=== PATIENT | male | born 1980 | race Two or more races ===

== ENCOUNTER 2016-12-03 14:26 | Emergency (ER) | payer MEDICAID ==
[2016-12-03 14:51] VITALS: BP 145/113
[2016-12-03] MEDS ORDERED: Cyclobenzaprine 10 MG Tab PO ONE (15:13)
[2016-12-03] MEDS ORDERED: Ketorolac 60 MG/2 ML SDV IM ONE (15:13)
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
--- NOTE | 2016-12-06 11:15 | CR ---
Shoulder Comp Rt HISTORY: Trauma COMPARISON: None FINDINGS: There is normal alignment of the glenohumeral as well as AC joints. No fractures are demon strated. There are hypertrophic degenerative findings at the AC joint. The soft tissues are unremark able. IMPRESSION: 1. No acute findings.
== END 2016-12-03 16:49 | disposition home or self-care (01) ==
LOC: JP.ED 14:26
DX: S43.401A Unspecified sprain of right shoulder joint, initial encounter (principal); F17.210 Nicotine dependence, cigarettes, uncomplicated; Z88.8 Allergy status to other drugs, medicaments and biological substances
CPT/HCPCS: 73030; 96372; 99283; A9270; J1885

== ENCOUNTER 2017-02-14 14:54 | Emergency (ER) | payer MEDICAID ==
[2017-02-14 15:10] VITALS: BP 127/111
[2017-02-14] MEDS ORDERED: Ketorolac 60 MG/2 ML SDV IM ONE (15:25)
--- NOTE | 2017-02-14 15:31 | EDM.PDOC ---
ED HPI GENERAL MEDICAL PROBLEM - General Chief Complaint: ENT Problem Stated Complaint: RIGHT SIDE TOOTH PAIN Time Seen by Provider: 02/14/17 15:20 Source of Information: Reports: Patient History Limitations: Reports: No Limitations - History of Present Illness INITIAL COMMENTS - FREE TEXT/NARRATIVE: 36 yr old male with 1 day hx of dental pain, right lower teeth. States he attempted to get into [facility] but they didn't have available appt today. No fever has been noted. States he missed work and also needs a work note. No hx of similar infection in past. 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 Onset: Sudden Duration: Day(s): Quality: Reports: Sharp Severity: Moderate Improves with: Reports: None Worsens with: Reports: None Associated Symptoms: Reports: No Other Symptoms - Related Data Allergies Allergy/AdvReac Type Severity Reaction Status Date / Time meperidine [From Demerol] Allergy Hives Verified 12/03/16 15:00 Home Meds: Home Meds NK [No Known Home Meds] 02/14/17 [History] Past Medical History - Past Health History Medical/Surgical History: Denies Medical/Surgical History Cardiovascular History: Reports: Hypertension Musculoskeletal History: Reports: Fracture Psychiatric History: Reports: PTSD Dermatologic History: Reports: Psoriasis Social & Family History - Tobacco Use Smoking Status *Q: Current Some Day Smoker Years of Tobacco use: 20 Packs/Tins Daily: 1 Used Tobacco, but Quit: No - Caffeine Use Caffeine Use: Reports: Coffee - Recreational Drug Use Recreational Drug Use: No ED ROS ENT - Review of Systems Review Of Systems: ROS reveals no pertinent complaints other than HPI. ED EXAM, ENT - Physical Exam Exam: See Below Exam Limited By: No Limitations General Appearance: Alert, No Apparent Distress Eye Exam: Bilateral Eye: Normal Inspection, PERRL Ears: Normal External Exam, Normal Canal, Normal TMs Nose: Normal Inspection, Normal Mucousa Mouth/Throat: Normal Lips, Normal Oropharynx, Dental Abcess (Tooth #31 and 32) Head: Atraumatic, Normocephalic Neck: Normal Inspection, Supple, Full Range of Motion. No: Non-Tender, Lymphadenopathy (R) (but reports tender on exam), Lymphadenopathy (L) Respiratory/Chest: No Respiratory Distress, Lungs Clear, Normal Breath Sounds Cardiovascular: Regular Rate, Rhythm Skin: Warm, Dry, Intact, Normal Color, No Rash (no facial swelling noted) Course - Vital Signs Last Recorded V/S: Last Vital Signs Temp 36.6 C 02/14/17 15:19 Pulse 94 02/14/17 15:19 Resp 16 02/14/17 15:19 BP 127/111 H 02/14/17 15:19 Pulse Ox 95 02/14/17 15:19 - Orders/Labs/Meds Meds: Medications Discontinued Medications Generic Name Dose Route Start Last Admin Trade Name Miranda PRN Reason Stop Dose Admin Ketorolac Tromethamine 60 mg 02/14/17 15:25 02/14/17 15:31 Toradol IM 02/14/17 15:26 60 mg ONETIME ONE Administration Departure - Departure Time of Disposition: 15:29 Disposition: Home, Self-Care 01 Condition: good Clinical Impression: Dental abscess, Elevated blood pressure reading, Tooth ache - Discharge Information Instructions: Dental Abscess Referrals: PCP,None [Primary Care Provider] - Forms: ED Department Discharge Additional Instructions: 1. See your dentist regarding your dental pain. 2. You received Clindamcyin-an antibiotics for your dental infection and acetaminophen with codeine and ibuprofen for your acute pain. 3. Your blood pressure was elevated today and will need to be rechecked within the next week. - Problem List & Annotations (1) Dental abscess SNOMED Code(s): 905601142 Code(s): K04.7 - PERIAPICAL ABSCESS WITHOUT SINUS Status: Acute Priority : Medium Current Visit: Yes (2) Elevated blood pressure reading SNOMED Code(s): 39693383 Code(s): R03.0 - ELEVATED BLOOD-PRESSURE READING, W/O DIAGNOSIS OF HTN Status: Acute Priority: Medium Current Visit: Yes (3) Tooth ache SNOMED Code(s): 77300747 Code(s): K08.89 - OTHER SPECIFIED DISORDERS OF TEETH AND SUPPORTING STRUCTURES Status: Acute Priority: Medium Current Visit: Yes - Problem List Review Problem List Initiated/Reviewed/Updated: Yes
== END 2017-02-14 15:43 | disposition home or self-care (01) ==
LOC: JP.ED 14:54
DX: K04.7 Periapical abscess without sinus (principal); R03.0 Elevated blood-pressure reading, without diagnosis of hypertension; K08.89 Other specified disorders of teeth and supporting structures; F17.210 Nicotine dependence, cigarettes, uncomplicated; Z88.8 Allergy status to other drugs, medicaments and biological substances
CPT/HCPCS: 96372; 99283; J1885

== ENCOUNTER 2017-03-13 16:04 | Emergency (ER) | payer MEDICAID ==
--- NOTE | 2017-03-13 18:30 | EDM.PDOC ---
[id number] Complaint: L LEG PAIN Time Seen by Provider: 03/13/17 16:40 Source of Information: Reports: Patient History Limitations: Reports: No Limitations - History of Present Illness INITIAL COMMENTS - FREE TEXT/NARRATIVE: pt arrived with a markedly swollen left leg. He had an abrasion on the inner aspect of the leg. Onset: Gradual Duration: Day(s): Location: Reports: Lower Extremity, Left Severity: Severe Associated Symptoms: Reports: Other (pt has marked tenderness by the left ankle on the inner aspect. He has not had a sprain. He did have the abrasion. ) Left Leg Pain Score (Numeric/FACES): 7 - Related Data Allergies Allergy/AdvReac Type Severity Reaction Status Date / Time meperidine [From Demerol] Allergy Hives Verified 03/13/17 17:10 Home Meds: Home Meds Acetaminophen with Codeine [Tylenol with Codeine #3 Tablet] 1 tab PO Q4H PRN 08/19 [History] Past Medical History - Past Health History Medical/Surgical History: Denies Medical/Surgical History Cardiovascular History: Reports: Hypertension Musculoskeletal History: Reports: Fracture Psychiatric History: Reports: PTSD Dermatologic History: Reports: Psoriasis Social & Family History - Tobacco Use Smoking Status *Q: Light Tobacco Smoker Years of Tobacco use: 23 Packs/Tins Daily: 0.3 Used Tobacco, but Quit: No - Caffeine Use Caffeine Use: Reports: Coffee - Recreational Drug Use Recreational Drug Use: Yes Recreational Drug Type: Reports: Marijuana/Hashish Recreational Drug Use Frequency: Rarely Review of Systems - Review of Systems Review Of Systems: See Below Eyes: Reports: No Symptoms Ears: Reports: No Symptoms Nose: Reports: No Symptoms Mouth/Throat: Reports: No Symptoms Respiratory: Reports: No Symptoms Cardiovascular: Reports: No Symptoms GI/Abdominal: Reports: No Symptoms Genitourinary: Reports: No Symptoms Musculoskeletal: Reports: Other (pt has a markedly swollen left leg which is very tight and particularly tender on the inner aspect of the left ankle. There is a slight red rash in this area. ) Skin: Reports: No Symptoms Neurological: Reports: No Symptoms Psychiatric: Reports: No Symptoms ED EXAM, GENERAL - Physical Exam Exam: See Below Free Text/Narrative:: pt has a markedly swollen left leg with the only injury is an abrasion on the inner aspect mid calf. Exam Limited By: No Limitations General Appearance: Alert, Anxious Ears: Normal TMs Nose: Normal Inspection Throat/Mouth: Normal Inspection Head: Atraumatic Neck: Normal Inspection Respiratory/Chest: No Respiratory Distress Cardiovascular: Regular Rate, Rhythm GI/Abdominal: Soft, Non-Tender (Male) Exam: Deferred Rectal (Males) Exam: Deferred Extremities: Other (left leg is markedly swollen . He is tender on the inner aspect of the left ankle. he leg feels quite tight. It has good color and pulses. ) Neurological: Alert, Oriented, Normal Cognition Course - Vital Signs Last Recorded V/S: Last Vital Signs Temp 36.3 C 03/13/17 17:08 Pulse 86 03/13/17 18:58 Resp 22 H 03/13/17 18:58 BP 194/110 H 03/13/17 18:58 Pulse Ox 96 03/13/17 18:58 - Orders/Labs/Meds Labs: Laboratory Tests 03/13/17 03/13/17 Range/Units 17:04 17:04 WBC 8.3 (4.5-11.0) K/uL RBC 5.23 (4.30-5.90) M/uL Hgb 16.1 H (12.0-15.0) g/dL Hct 46.0 (40.0-54.0) % MCV 88 (80-98) fL MCH 31 (27-31) pg MCHC 35 (32-36) % Plt Count 264 (150-400) K/uL Neut % (Auto) 53 (36-66) % Lymph % (Auto) 32 (24-44) % Vernon % (Auto) 10 H (2-6) % Eos % (Auto) 4 (2-4) % Baso % (Auto) 1 (0-1) % Sodium 140 (140-148) mmol/L Potassium 3.7 (3.6-5.2) mmol/L Chloride 106 (100-108) mmol/L Carbon Dioxide 24 (21-32) mmol/L Anion Gap 10.0 (5.0-14.0) mmol/L BUN 11 (7-18) mg/dL Creatinine 0.9 (0.8-1.3) mg/dL Est Cr Clr Drug Dosing 133.01 mL/min Estimated GFR (MDRD) > 60 (>60) Glucose 143 H (74-106) mg/dL Calcium 8.4 L (8.5-10.1) mg/dL Total Bilirubin 0.3 (0.2-1.0) mg/dL AST 36 (15-37) U/L ALT 59 (12-78) U/L Alkaline Phosphatase 70 (46-116) U/L Total Protein 7.4 (6.4-8.2) g/dL Albumin 3.3 L (3.4-5.0) g/dL Globulin 4.1 H (2.3-3.5) g/dL Albumin/Globulin Ratio 0.8 L (1.2-2.2) Meds: Medications Discontinued Medications Generic Name Dose Route Start Last Admin Trade Name Freq PRN Reason Stop Dose Admin Ceftriaxone Sodium 1 gm/ 50 mls @ 100 mls/hr 03/13/17 18:36 03/13/17 19:15 Sodium Chloride IV 03/13/17 19:05 100 mls/hr ONETIME ONE Administration Sodium Chloride 10 ml 03/13/17 18:35 03/13/17 19:15 Saline Flush FLUSH 10 ml ASDIRECTED PRN Administration Keep Vein Open - Re-Assessments/Exams Free Text/Narrative Re-Assessment/Exam: 03/13/17 18:46 pt had a venous doppler on the left leg and there was no clot present. Departure - Departure Time of Disposition: 18:47 Disposition: Home, Self-Care 01 Condition: Fair Clinical Impression: Cellulitis of left leg - Discharge Information Instructions: Cellulitis, Adult, [id number] Referrals: PCP,None [Primary Care Provider] - Forms: ED Department Discharge Care Plan Goals: elevate leg, moist warm packs to the area, rocephen 1 gm given and he will return tomorrow for another gram of rocephen. He will be rechecked omorrow tylenol 3 q6h prn for pain, motrin 600mg tid.
[2017-03-13] MEDS ORDERED: Sodium Chloride 0.9% 10 ML Syringe FLUSH PRN (18:35)
[2017-03-13] MEDS ORDERED: cefTRIAXone 1 GM in Sodium Chloride 0.9% 50 ML IV ONE (18:36)
[2017-03-13 18:59] VITALS: BP 194/110
--- NOTE | 2017-03-14 13:00 | US ---
VL Duplex Lwr Ext Veins Ltd Lt INDICATION: swelling and pain FINDINGS: Ultrasound examination of the lower extremity using Doppler and compressive technique demo nstrates that the common femoral, femoral, and popliteal veins are patent, and negative for thrombus . The calf veins were segmentally visualized and are negative where seen. IMPRESSION: Negative for deep venous thrombosis.
== END 2017-03-13 19:50 | disposition home or self-care (01) ==
LOC: JP.ED 16:04
DX: L03.116 Cellulitis of left lower limb (principal); I10 Essential (primary) hypertension; L40.9 Psoriasis, unspecified; F17.210 Nicotine dependence, cigarettes, uncomplicated; Z88.8 Allergy status to other drugs, medicaments and biological substances
CPT/HCPCS: 36415; 80053; 85025; 93971; 96365; 99284; J0696; J7050